=== PATIENT | male | born 1945 | race Caucasian/White ===

== ENCOUNTER 2017-03-19 06:42 | Day surgery (SDC) | payer MEDICARE, BC ==
[2017-03-19] MEDS ORDERED: Propofol 200 MG/20 ML SDV ONE ×2 (06:48→06:49)
[2017-03-19] MEDS ORDERED: fentaNYL 100 MCG/2 ML SDV ONE (06:49)
[2017-03-19] MEDS ORDERED: Dextrose 5%-Lactated Ringers 1,000 ML IV SCH (07:45)
[2017-03-19 09:07] VITALS: BP 131/90
--- NOTE | 2017-03-25 16:59 | OR ---
DATE OF PROCEDURE: 03/19/2017 PREOPERATIVE DIAGNOSIS: History of colonic polyp status post right colectomy 1 year ago. POSTOPERATIVE DIAGNOSIS: A single 2 to 3 mm polyp within the mid sigmoid colon. OPERATIVE PROCEDURE: Flexible colonoscopy with polypectomy by snare technique. ANESTHESIA: IV sedation. INDICATIONS FOR PROCEDURE: A 71-year-old status post right colectomy for a large sessile polyp in his right colon. The plan is to proceed with a followup colonoscopy, biopsies, and/or polypectomy as indicated. Potential risks including bleeding and perforation were discussed, and the patient wishes to proceed. DETAILS OF PROCEDURE: The patient was taken to the operating room and placed in the left lateral decubitus position. IV sedation was administered after which initial digital rectal exam was performed and was unremarkable. Colonoscope was then passed into the rectum with retroflexion revealing uncomplicated hemorrhoidal columns. The scope was immediately passed to the level of the ileocolonic anastomosis which is in the mid transverse colon. To that level, one additional polyp at 20 cm was identified, this was very small, around 2 to 3 mm in size and it was encircled at a space with the snare, cauterized, and the specimen delivered from the field. No other abnormalities were noted at this point, the scope was withdrawn, and the procedure concluded. The prep was quite good. Plan will be to call the patient regarding a followup colonoscopy. Assuming this is an adenomatous polyp, we will recommend a repeat colonoscopy in 2 years. Hero Palma MD /[id number]
== END 2017-03-19 09:28 | disposition home or self-care (01) ==
LOC: JP.SDS 06:42
PROVIDERS: ATTEND Surgery
DX: Z12.11 Encounter for screening for malignant neoplasm of colon (principal); D12.6 Benign neoplasm of colon, unspecified; Z86.010 Personal history of colon polyps; Z88.8 Allergy status to other drugs, medicaments and biological substances
CPT/HCPCS: 45385; J2704; J3010; J7042; 88305

== ENCOUNTER 2020-02-27 05:33 | Day surgery (SDC) | payer BC, MEDICARE ==
[2020-02-27] MEDS ORDERED: Dextrose 5%-Lactated Ringers 1,000 ML IV SCH (06:00)
[2020-02-27] MEDS ORDERED: fentaNYL 100 MCG/2 ML SDV ONE (07:08)
[2020-02-27] MEDS ORDERED: Propofol 200 MG/20 ML SDV ONE (07:09)
[2020-02-27] MEDS ORDERED: Midazolam 1 MG/ML 2 ML SDV ONE (07:09)
[2020-02-27 08:30] VITALS: BP 133/70; PULSE 49
--- NOTE | 2020-03-02 15:57 | OR ---
DATE OF PROCEDURE: 02/27/2020 SURGEON: Hero Palma MD PREOPERATIVE DIAGNOSIS: History of colon polyps. POSTOPERATIVE DIAGNOSES: 1. Recurrent colon polyps. 2. Uncomplicated left colonic diverticulosis. OPERATIVE PROCEDURE: Flexible colonoscopy. ANESTHESIA: IV sedation. INDICATIONS FOR PROCEDURE: A 74-year-old status post previous right colectomy for a sessile colon polyp, presents now for a followup colonoscopy with biopsies and/or polypectomies as indicated. Potential risks including bleeding and perforation were discussed, and the patient wishes to proceed. DETAILS OF PROCEDURE: The patient was taken to the operative room, placed in a left lateral decubitus position. IV sedation was administered, after which the initial digital rectal examination was performed and was unremarkable. Colonoscope was passed into the rectum with retroflexion revealing uncomplicated hemorrhoidal columns. Scope was then eventually passed to the ileocolic anastomosis with the patient having been status post previous right colectomy. The patient had some left colonic diverticulosis, which was otherwise uncomplicated. Otherwise, there were no areas of colitis, no polyps or other visual findings suggestive of neoplasia. Scope was then withdrawn, and the above findings reconfirmed. Prep was quite good with only a small amount of liquid stool present. The procedure was then concluded. The patient was taken to the recovery room in satisfactory condition. Recommendations would be to repeat the colonoscopy in 5 years given the history of colon polyps. Hero Palma MD /[id number]
== END 2020-02-27 08:46 | disposition home or self-care (01) ==
LOC: JP.SDS 05:33
PROVIDERS: ATTEND Surgery
DX: Z12.11 Encounter for screening for malignant neoplasm of colon (principal); K63.5 Polyp of colon; K57.30 Diverticulosis of large intestine without perforation or abscess without bleeding; K64.9 Unspecified hemorrhoids; E66.9 Obesity, unspecified; Z90.49 Acquired absence of other specified parts of digestive tract; Z68.31 Body mass index [BMI] 31.0-31.9, adult
CPT/HCPCS: G0105; J2250; J2704; J3010; J7121